=== PATIENT | female | born 1965 | race Native Hawaiian/Other Pacific Islander ===

== ENCOUNTER 2018-11-04 20:53 | Emergency (ER) | payer OTHER ==
[2018-11-04 21:11] VITALS: BP 159/81
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
[2018-11-04] MEDS ORDERED: IBUPROFEN PO ONE (23:45)
== END 2018-11-04 23:57 | disposition home or self-care (01) ==
LOC: ED 20:53
DX: S39.012A Strain of muscle, fascia and tendon of lower back, initial encounter (principal); G44.209 Tension-type headache, unspecified, not intractable; V49.59XA Passenger injured in collision with other motor vehicles in traffic accident, initial encounter; Y93.89 Activity, other specified; Y92.89 Other specified places as the place of occurrence of the external cause; Y99.8 Other external cause status